=== PATIENT | female | born 1960 | race Caucasian/White ===

== ENCOUNTER → 2017-05-29 | Outpatient (CLI) | payer OTHER ==
[~2017-05-29] MED LIST: 00186-0372-20 IH; ASPIRIN 32325 MG/TAB PO; CO ENZYME Q-1050 MG PO; COREG12.5 MG PO; GLUCOPHAGE500 MG/TAB PO; HCTZ 25MG TAB25 MG PO; LINZESS145CAP PO; MELATONIN3 M1 PO; NIACIN250 MG PO; PRAVACHOL 40MG40 MG PO; ZESTRIL 20MG TA20 MG PO
== END ==
LOC: COL.RAD 05:56
DX: K59.09 Other constipation (principal)

== ENCOUNTER → 2017-06-03 | Outpatient (CLI) | payer OTHER | LOC: COL.RAD 05:37 | DX: K59.09 Other constipation (principal) ==